=== PATIENT | female | born 1995 | race Caucasian/White ===

== ENCOUNTER 2024-07-30 01:22 | Inpatient (IN) ==
[2024-07-30 02:33] LABS: ABS Eosinophils 0.1 10^3/uL (0.0-0.5); ABS Lymphocytes 2.1 10^3/uL (1.0-4.8); ABS Monocytes 1.3 10^3/uL (0.0-0.9); ABS Neutrophils 6.7 10^3/uL (1.5-7.6); ABS Nucleated RBC 0.01 10^3/ul; Hematocrit 33.7 % (35-45); Hemoglobin 11.2 g/dL (11.5-14.3); Lymphocyte % 20.3 %; Mean Corpuscular Hemoglobin 28.6 pg (27-33); Mean Corpuscular Hgb Conc 33.2 g/dL (31-36); Mean Corpuscular Volume 86.3 fL (80-97); Mean Platelet Volume 9.4 fL (7.5-11.2); Nucleated Red Blood Cells % 0.1 %/100WBC (0.0-0.8); Platelet Count 254 10^3/uL (150-450); Red Blood Count 3.91 10^6/uL (3.63-4.92); Red Cell Distribution Width 14.1 % (12-17); White Blood Count 10.1 10^3/uL (3.8-11.8)
[2024-07-30] MEDS ORDERED: Lidocaine 1% VIAL 10 MG/ML 30 ML VIAL INJ PRN (02:49)
[2024-07-30 03:05] LABS: Urine Benzodiazepine Screen None Detected (None Detect); Urine Cannabinoids Screen None Detected (None Detect); Urine Opiates Screen None Detected (None Detect)
[2024-07-30] MEDS: Buffered Lidocaine 1% SYRIN 1 ml INTRADERM ONE (03:53)
[2024-07-30] MEDS: Clindamycin 900 MG/D5W BAG 900 MG/50 ML BAG IVPB SCH (03:58)
[2024-07-30] MEDS: Lactated Ringers 1000 ml BAG 1,000 ML IV SCH ×2 (03:59→06:45)
[2024-07-30] MEDS: Ondansetron 4 mg VIAL 2 MG/ML 2 ml VIAL IV PRN (05:29)
[2024-07-30] MEDS: Lactated Ringers 1000 ml BAG 1,000 ML IV ONE ×2 (06:01→09:26)
[2024-07-30] MEDS ORDERED: Phenylephrine 40 mcg/mL 10mL (400mcg) SYRINGE IV PUSH PRN ×2 (06:56)
[2024-07-30] MEDS ORDERED: Sodium Citrate/Citric Acid LIQ 15 ML UDC PO PRN (06:56)
[2024-07-30] MEDS: OBEPIDURAL (200 ML) 200 ML EPIDURAL SCH (07:02)
[2024-07-30] MEDS: Lidocaine 1.5% EPI 1:200,000 30 ML SDV ONE (09:26)
[2024-07-30] MEDS: OBEPIDURAL (200 ML) 200 ML EPIDURAL ONE (09:26)
[2024-07-30] MEDS: Oxytocin in LR 20,000 MILLI.UNIT/1,000 ML BAG IV SCH (09:32)
[2024-07-30 14:06] LABS: Urine Appearance Turbid; Urine Bilirubin Negative (Negative); Urine Blood Negative (Negative); Urine Color Yellow; Urine Glucose Negative (Negative); Urine Ketones Negative (Negative); Urine Nitrite Negative (Negative); Urine Protein 1+ (>=30 mg/dL) (Negative); Urine Specific Gravity 1.024 (1.002-1.030); Urine Urobilinogen Negative (Negative); Urine pH 8.5 (5.0-8.0)
[2024-07-30 14:11] LABS: Urine Bacteria Absent /HPF (Absent); Urine Red Blood Cell 1+(3-5/hpf) /HPF (0-Trace); Urine Squamous Epithelial Cell Present /HPF (Absent); Urine White Blood Cell Trace(0-5/hpf) /HPF (0-Trace)
[2024-07-30] MEDS ORDERED: Glycerin ADULT 2.4 gm SUPP PR PRN (18:36)
[2024-07-30] MEDS ORDERED: Lactated Ringers 1000 ml BAG 1,000 ML IV SCH (19:00)
[2024-07-31 05:41] LABS: ABS Eosinophils 0.1 10^3/uL (0.0-0.5); ABS Monocytes 1.2 10^3/uL (0.0-0.9); ABS Neutrophils 12.3 10^3/uL (1.5-7.6); Eosinophil % 0.4 %; Hematocrit 28.6 % (35-45); Hemoglobin 9.7 g/dL (11.5-14.3); Lymphocyte % 12.9 %; Mean Corpuscular Hemoglobin 29.4 pg (27-33); Mean Corpuscular Hgb Conc 33.8 g/dL (31-36); Mean Platelet Volume 8.8 fL (7.5-11.2); Platelet Count 176 10^3/uL (150-450); Red Blood Count 3.29 10^6/uL (3.63-4.92); Red Cell Distribution Width 14.1 % (12-17); White Blood Count 15.7 10^3/uL (3.8-11.8)
[2024-07-31] MEDS: Dibucaine 1% OINT 28.35 GM TUBE PR PRN (08:55)
[2024-07-31] MEDS: Witch Hazel PAD JAR TOPICAL PRN (08:55)
[2024-07-31] MEDS: Phenylephrine 40 mcg/mL 10mL (400mcg) SYRINGE ONE (20:40)
[2024-07-31] MEDS: Lidocaine 1% VIAL 10 MG/ML 30 ML VIAL ONE (20:40)
[2024-08-01 08:26] VITALS: BP 119/78
== END 2024-08-01 16:00 | disposition home or self-care (01) | DRG 560 ==
LOC: MCHOBOUT 01:22 → MCHOB 03:00
PROVIDERS: ADMIT Midwife; ATTEND Advanced Practice Midwife